=== PATIENT | female | born 1950 | race Caucasian/White ===

== ENCOUNTER 2019-12-25 05:34 | Outpatient (RCR) | payer MEDICARE, OTHER ==
[2019-12-18 12:10] VITALS: BP 127/80
[2019-12-18 12:37] LABS: BASOPHILS # (AUTO) 0.1 10^3/uL (0.0-0.1); BASOPHILS % (AUTO) 1 % (0-10); BILIRUBIN,URINE NEGATIVE (NEGATIVE); CLARITY,URINE CLEAR; COLOR,URINE DARK YELLOW; EOSINOPHILS # (AUTO) 0.2 10^3/uL (0.0-0.3); EOSINOPHILS % (AUTO) 4 % (0-10); GLUCOSE, URINE (UA) NEGATIVE (NEGATIVE); HEMATOCRIT 43 % (35-52); HEMOGLOBIN 15.4 g/dL (11.5-16.0); KETONES,URINE NEGATIVE (NEGATIVE); LEUKOCYTE ESTERASE ,URINE TRACE (NEGATIVE); LYMPHOCYTES # (AUTO) 1.7 10^3/uL (1.0-4.0); LYMPHOCYTES % (AUTO) 31 % (12-44); MEAN CORPUSCULAR HEMOGLOBIN 32 pg (25-34); MEAN CORPUSCULAR HGB CONC 36 g/dL (32-36); MEAN CORPUSCULAR VOLUME 89 fL (80-99); MONOCYTES # (AUTO) 0.7 10^3/uL (0.0-1.0); MONOCYTES % (AUTO) 13 % (0-12); NEUTROPHILS # (AUTO) 2.8 10^3/uL (1.8-7.8); NEUTROPHILS % (AUTO) 52 % (42-75); NITRITE,URINE NEGATIVE (NEGATIVE); PLATELET COUNT 257 10^3/uL (130-400); PROTEIN,URINE NEGATIVE (NEGATIVE); WHITE BLOOD COUNT 5.5 10^3/uL (4.3-11.0)
[2019-12-18 12:47] LABS: BACTERIA,URINE NEGATIVE /HPF; SQUAMOUS EPITHELIAL CELL,UR RARE /HPF; WBC,URINE RARE /HPF
[2019-12-18 12:48] LABS: PROTHROMBIN TIME PATIENT 13.3 SEC (12.2-14.7)
[2019-12-18 12:55] LABS: ALBUMIN 4.2 GM/DL (3.2-4.5); BILIRUBIN,TOTAL 0.8 MG/DL (0.1-1.0); CALCIUM 9.8 MG/DL (8.5-10.1); CREATININE SERUM 0.93 MG/DL (0.60-1.30); POTASSIUM 4.3 MMOL/L (3.6-5.0); TOTAL PROTEIN 7.3 GM/DL (6.4-8.2)
[2019-12-18 13:00] LABS: ERYTHROCYTE SEDIMENTATION RATE 14 MM/HR (0-30)
--- NOTE | 2019-12-18 14:54 | Diagnostic Imaging Report ---
Indication: Preoperative for a knee arthroplasty. Time of exam: 12:37 PM Comparison is made with prior chest from 07/12/2013. The heart size is normal. The pulmonary vascularity is unremarkable. The lungs are clear. No infiltrate, effusion or pneumothorax is detected. Impression: No acute cardiopulmonary process is detected. Dictated by: Dictated on workstation # [id number]
[~2019-12-25] VITALS: Ht 152 cm; Wt 82.6 kg
[~2019-12-25 05:34] MED LIST: AMLO10TA PO; AMLO10TA7 PO; ASPI-999 PO; CYCL10TA9 PO; FLT05NA16 NSEACH; FURO40TA4 PO; LORA10TA7 PO; LOSA100T57 PO; LOVA40TA2 PO; METO-333 PO; NAPR-689 PO; NAPR-915 PO; NF-TYLARTH PO; OMEG1CAP51 PO; OMEP20CA12 PO; OMEP20CA18 PO; OXYC-12 PO; TRAM50TA2 PO; TRAM50TA3 PO
== END 2019-12-25 14:42 | disposition home or self-care (01) ==
LOC: PREOP 05:34
PROVIDERS: ATTEND Orthopaedic Surgery
DX: Z01.810 Encounter for preprocedural cardiovascular examination (principal); Z01.811 Encounter for preprocedural respiratory examination; Z01.812 Encounter for preprocedural laboratory examination; Z11.2 Encounter for screening for other bacterial diseases; M17.11 Unilateral primary osteoarthritis, right knee; R53.83 Other fatigue; Z20.828 Contact with and (suspected) exposure to other viral communicable diseases
CPT/HCPCS: 36415; 71046; 80053; 81000; 85025; 85610; 85652; 86850; 86900; 86901; 87081; 87635; 93005

== ENCOUNTER 2019-12-27 09:30 | Inpatient (IN) | payer MEDICARE, OTHER ==
--- NOTE | 2019-12-18 13:40 | HISTORY AND PHYSICAL ---
DATE OF SERVICE: This will be for inpatient admission on 12/27/2019 for right total knee arthroplasty. The patient will require regular inpatient admission due to comorbidities, need for inpatient physical therapy and pain management issues as well as gait abnormalities. HISTORY OF PRESENT ILLNESS: The patient is a 69-year-old female with progressively worsening right knee pain. She previously underwent left total knee arthroplasty with good results. She reports progressive worsening right knee pain with loss of function. Radiographs reveal severe medial and patellofemoral arthrosis. Due to functional impairment and failure to improve with conservative measures, which has included injections, rest and activity modifications, the patient has elected to proceed with surgical intervention. REVIEW OF SYSTEMS: No chest pain, no shortness of breath, no dysuria. PAST MEDICAL HISTORY: Hypertension, hyperlipidemia, reflux. PAST SURGICAL HISTORY: Left total knee arthroplasty and tear duct surgery. FAMILY HISTORY: Significant for diabetes, ischemic heart disease. PRIMARY CARE PROVIDER: Dr. Kimberly Louis, [place], [place]. MEDICATIONS: Amlodipine, losartan, lovastatin, Naprosyn, tramadol, aspirin, omeprazole, furosemide, loratadine, metoprolol. ALLERGIES: No known drug allergies. SOCIAL HISTORY: The patient denies alcohol, tobacco use. PHYSICAL EXAMINATION: GENERAL: The patient is well-developed, well-nourished, in no acute distress. HEENT: Normocephalic, atraumatic. Pupils are equal, round and reactive to light. Oropharynx is clear. NECK: Supple, no lymphadenopathy. LUNGS: Clear to auscultation bilaterally. HEART: Regular rate and rhythm. ABDOMEN: Soft, nontender, nondistended. EXTREMITIES: The right knee demonstrates varus alignment. She ambulates with an antalgic gait. Range of motion is 0/3/125 with patellofemoral crepitus and pain medially with Rachelle. There is no varus valgus laxity. Negative anterior and posterior drawer. IMPRESSION: Right knee osteoarthritis, unresponsive to conservative measures. PLAN: Right total knee arthroplasty. The risks, benefits, options, ramifications and recovery were discussed at length with the patient. She understands and wishes to proceed. Job ID: [id number] DocumentID: [id number] Dictated Date: 12/18/2019 13:26:24 [employer] Founder Date: 12/18/2019 13:39:46 Dictated By: XIMENA BOYLE MD
[~2019-12-27] VITALS: Ht 152.4 cm; Wt 82.2 kg
[~2019-12-27 09:30] MED LIST changes: +AMLO-251 PO; -AMLO10TA7 PO
--- NOTE | 2020-01-15 11:31 | HISTORY AND PHYSICAL ---
DATE OF SERVICE: ADMISSION HISTORY AND PHYSICAL DATE OF ADMISSION: 01/24/2020. This will be for admission date on 01/24/2020, her date of service will be 01/24/2020. The patient will require regular inpatient admission on 01/24/2020 for right total knee arthroplasty due to associated comorbidities, need for inpatient physical therapy and pain management issues as well as gait abnormalities. HISTORY OF PRESENT ILLNESS: The patient is a 69-year-old female with progressively worsening right knee pain. She previously underwent a left total knee arthroplasty with good results. She reports progressive worsening right knee pain with loss of function. Radiographs revealed severe medial and patellofemoral arthrosis. Due to functional impairment and failure to improve with conservative measures, which has included injections, rest and activity modifications, the patient elected to proceed with surgical intervention. REVIEW OF SYSTEMS: No chest pain, no shortness of breath and no dysuria. PAST MEDICAL HISTORY: Hypertension, hyperlipidemia and reflux. PAST SURGICAL HISTORY: Left total knee arthroplasty and tear duct surgery. FAMILY HISTORY: Significant for diabetes and ischemic heart disease. PRIMARY CARE PROVIDER: Dr. Kimberly Louis in [facility]. MEDICATIONS: Amlodipine, losartan, lovastatin, Naprosyn, tramadol, aspirin, omeprazole, furosemide, loratadine and metoprolol. ALLERGIES: No known drug allergies. SOCIAL HISTORY: The patient denies alcohol and tobacco use. PHYSICAL EXAMINATION: GENERAL: The patient is well-developed, well-nourished, in no acute distress. HEENT: Normocephalic and atraumatic. Pupils are equal, round and reactive to light. Oropharynx is clear. NECK: Supple, no lymphadenopathy. LUNGS: Clear to auscultation bilaterally. HEART: Regular rate and rhythm. ABDOMEN: Soft, nontender and nondistended. EXTREMITIES: The right knee demonstrates varus alignment. She ambulates with an antalgic gait. Range of motion is 0/3/125 with patellofemoral crepitus and pain medially with Rachelle. There is no varus valgus laxity. Negative anterior and posterior drawer. IMPRESSION: Severe right knee osteoarthritis, unresponsive to conservative measures. PLAN: Right total knee arthroplasty. The risks, benefits, options, ramifications and recovery were discussed at length with the patient. She understands and wishes to proceed. Job ID: [id number] DocumentID: [id number] Dictated Date: 01/15/2020 11:21:26 Fence Erector Supervisor Date: 01/15/2020 11:30:16 Dictated By: XIMENA BOYLE MD
[2020-01-24] VITALS (12 sets, daily range): BP systolic 103–151; BP diastolic 61–96
[2020-01-24] MEDS ORDERED: fentaNYL INJECTION 100 MCG/2 ML AMP ONE ×2 (06:43→08:27)
[2020-01-24] MEDS ORDERED: LIDOCAINE PF 2% 5 ML (XYLOCAINE) VIAL ONE (06:43)
[2020-01-24] MEDS ORDERED: BUPIVACAINE 0.25% 30 ML (SENSORCAINE) VIAL ONE (06:43)
[2020-01-24] MEDS ORDERED: MIDAZOLAM 2 MG/2 ML (VERSED) VIAL ONE (06:43)
[2020-01-24] MEDS ORDERED: CEFUROXIME INJECTION 1,500 MG in WATER (STERILE) FOR INJECTION 15 ML IV ONE (06:45)
[2020-01-24] MEDS ORDERED: proPOfol 200 MG/20 ML (DIPRIVAN) VIAL IV ONE (06:54)
[2020-01-24] MEDS ORDERED: SEVOFLURANE (ULTANE) 15 ML INHAL SOLN ONE ×5 (06:55→09:16)
[2020-01-24] MEDS ORDERED: ONDANSETRON 4 MG/2 ML (SDV) Z0FRAN ONE (06:55)
[2020-01-24] MEDS ORDERED: diphenhydrAMINE 50 MG/ML INJ (BENADRYL) IVP PRN (07:15)
[2020-01-24] MEDS ORDERED: morphine PCA 100 MG/100 ML BAG IV PRN (07:15)
[2020-01-24] MEDS ORDERED: ACETAMINOPHEN 325 MG TABLET PO PRN (07:15)
[2020-01-24] MEDS ORDERED: ONDANSETRON 4 MG/2 ML (SDV) Z0FRAN IVP PRN ×2 (07:15→09:45)
[2020-01-24] MEDS: LACTATED RINGERS 1,000 ML IV PRN ×2 (07:26→09:05)
--- NOTE | 2020-01-24 07:34 | Progress Note-Pre Operative ---
Pre-Operative Progress Note H&P Reviewed The H&P was reviewed, patient examined and no changes noted. Date Seen by Provider: Jan 24, 2020 Time Seen by Provider: 07:11 Date H&P Reviewed: Jan 24, 2020 Time H&P Reviewed: 07:10 Pre-Operative Diagnosis: right knee primary osteoarthritis XIMENA BOYLE MD Jan 24, 2020 07:34
--- NOTE | 2020-01-24 07:35 | Progress Note-Post Operative ---
Post-Operative Progess Note Surgeon (s)/Scenic Artist (s) Surgeon XIMENA BOYLE MD Scenic Artist: Abdulkadir Sanderson Pre-Operative Diagnosis right knee primary osteoarthritis Post-Operative Diagnosis right knee primary osteoarthritis Procedure & Operative Findings Date of Procedure 01/24/20 Procedure Performed/Findings right total knee arthroplasty Anesthesia Type GETA Estimated Blood Loss Estimated blood loss (mL): minimal Specimens/Packing Specimens Removed none Packing: none XIMENA BOYLE MD Jan 24, 2020 07:35
--- NOTE | 2020-01-24 07:37 | D/C HH Face to Face Order ---
D/C Face to Face Orders Reconcile Patient Problems Problems Reviewed?: Yes Instructions for Patient [facility] You[facility], Patient Instructions/FollowUp: three weeks Physician to follow Patient: three weeks Discharge Diet for Home: Regular Diet Patient Data-Allergies,Ht & Wt Patient Allergies: Coded Allergies: No Known Drug Allergies (Unverified , 01/24/20) Height (Feet): 5 Height (Inches): 2.00 Weight (Pounds): 181 Weight (Ounces): 0.0 Home Health Need/Face to Face Date of Face to Face: Jan 24, 2020 Clinical Findings: Instability, Muscle weakness, Pain with ambulation, Unsteady gait I have seen Pt [id number]: Yes Discharged To: Home Diagnosis/Conditions: right total knee arthroplasty Patient is Homebound due to: Aminata fall risk due to instabilty, Muscle weakness, Pain w/ambulation Homebound Status Due to the above stated illness, injury or surgical procedure (medical condition or diagnosis) and associated clinical findings, the patient is homebound because of his/her inability to leave home except with aid of a supportive device and/or person AND leaving the home requires a considerable and taxing effort or is medically contraindicated. Pt req the following assistanc: Walker Home Health Nursing Orders Home Health Services Order: Physical Therapy-Evaluate & Treat DC right knee abdiaziz and apply steri strips 02/07/20 Therapy Orders Therapy Orders: Physical Therapy, PT to assess for OT Therapy Specific Orders: Eval assistive deivces, Teach strategies/cognitive deficits, Teach enviro modifications/safety, Gait training, Increase strength/endurance, Provider maintenance therapy, Restore ROM Certify Stmt I certify that this patient is under my care and that I, a nurse practitioner or a physician; a hair or beauty salon assistant working with me, had a face to face encounter that - meets the physician face to face encounter requirements with this patient as dated. XIMENA BOYLE MD Jan 24, 2020 07:37
[2020-01-24] MEDS ORDERED: INTRA-ARTICULAR IU ONE ×5 (07:45)
[2020-01-24] MEDS ORDERED: TRANEXAMIC ACID 100 MG/ML 10 ML INJECTION IV ONE (08:21)
[2020-01-24] MEDS: SENNA W/DOCUSATE (SENOKOT S) TABLET PO SCH ×2 (09:00→20:20)
[2020-01-24] MEDS ORDERED: MEPERIDINE (DEMEROL) INJ 50 MG/ML IVP ONE (09:45)
[2020-01-24] MEDS ORDERED: HYDROmorphone 2 MG/ML VIAL (DILAUDID) IV ONE (09:45)
[2020-01-24] MEDS ORDERED: morphine INJ 10 MG/ML 1ML (SYR OR VIAL) IVP ONE (09:45)
[2020-01-24] MEDS ORDERED: MEPERIDINE (DEMEROL) INJ 50 MG/ML ONE (09:48)
--- NOTE | 2020-01-24 10:24 | Progress Note ---
Standard Progress Note Progress Notes/Assess & Plan Date Seen by a Provider: Jan 24, 2020 Time Seen by a Provider: 10:10 Progress/Assessment & Plan post op check no complaints Radiographs--HW well positioned without fracture RLE-- 1 plus, symmetric DP pulse with brisk cap refill. Intact DF and PF of toes and ankle. Intact sensation to light touch throughout s/p RTKA mobilize as able XIMENA BOYLE MD Jan 24, 2020 10:23
--- NOTE | 2020-01-24 10:26 | Diagnostic Imaging Report ---
INDICATION: Postop right knee arthroplasty. TECHNIQUE: AP and lateral views of the right knee were obtained at 9:54 AM. FINDINGS: The right knee prosthesis appears in good alignment. There is no sign of fracture or device loosening. There is soft tissue gas, compatible with the recent surgery. There is no unexpected foreign body post surgery. IMPRESSION: Well aligned right knee prosthesis with no unexpected foreign body post surgery. Dictated by: Dictated on workstation # [id number]
--- NOTE | 2020-01-24 10:35 | NUR ---
MARTIN MARTE admitted to room 411-1, with an admitting diagnosis of OSTEOARTHRITIS OF RIGHT KNEE, on 01/24/20 from PACU via BED, accompanied by PACU MARTIN WHITMAN introduced to surroundings, call light, bed controls, phone, TV, temperature control, lights, meal times, smoking policy, visitor policy, side rail policy, bathrooms and showers. Patient Rights given to patient in the handbook. MARTIN MARTE verbalizes understanding that [facility] is not responsible for the loss or damage to any personal effects or valuables that are kept in the patients posession during their hospitalization. The following Patient Care Plans were discussed with the PATIENT: Discharge Planning, POST OP ACTIVITIES, RIGHT TOTAL KNEE REPLACEMENT and KNOWLEDGE DEFICIT.. MARTIN MARTE verbalizes understanding of Interdisciplinary Patient Education. Patient and/or family were informed about the Rapid Response Team and its purpose. PATIENT ON ROOM AIR. ESTER HOSE, SCD AND POLOAR DOMINICK ON RIGHT KNEE. DRESSING CLEAN, DRY AND INTACT. ICE WATER AND ICE CHIPS AVAILABLE. PATIENT DENIES ANY NEEDS AT THIS TIME. WILL CONTINUE TO MONITOR.
[2020-01-24] MEDS: NS IV 1000 ML 1,000 ML IV SCH ×2 (10:51→22:47)
--- NOTE | 2020-01-24 13:15 | NUR ---
PCT REPORTED PATIENT'S SPO2 LOW IN -AROUND 78%. 3L NC PUT ON SPO2 CAME UP TO 99% POSSIBLE SLEEP APNEA? PATIENT OPENED EYES TO GENTLE SHAKING AND LIGHT STERNAL RUB. CONTINUOUS 02 MONITOR AND END TIDAL CO2 ORDERED. WILL CONTINUE TO MONITOR. DR KEYES NOTIFIED.
--- NOTE | 2020-01-24 14:42 | Physical Therapy Evaluation ---
PT Evaluation-General Medical Diagnosis Admission Date Jan 24, 2020 at 06:17 Medical Diagnosis: R TKA Onset Date: Jan 24, 2020 Therapy Diagnosis Therapy Diagnosis: Impaired strength, mobility, and ROM Height/Weight Height (Feet): 5 Height (Inches): 2.00 Weight (Pounds): 181 Weight (Ounces): 0.0 Precautions Precautions/Isolations: Fall Prevention, Standard Precautions Weight Bear Status Right Lower Extremity: Right Weight Bearing/Tolerated Left Lower Extremity: Left Full Weight Bearing Referral Physician: Kin Reason for Referral: Evaluation/Treatment Medical History Pertinent Medical History: HTN Additional Medical History PAST MEDICAL HISTORY: Hypertension, hyperlipidemia and reflux. PAST SURGICAL HISTORY: Left total knee arthroplasty and tear duct surgery. Reviewed History: Yes Social History Home: Single Level Current Living Status: Spouse (daughter home for pt's recovery period) Entry Into Home: Ramp PT Steps Into Home: 2 Prior Prior Level of Function SCALE: Activities may be completed with or without assistive devices. 7-Dtaomfgibl-ipphydn completes the activity by him/herself with no assistance from a helper. 5-Set-up or Clean-up Assistance-helper sets up or cleans up; patient completes activity. [place] assists only prior to or following the activity. 4-Supervision or Touching Assistance-helper provides verbal cues and/or touching/steadying and/or contact guard assistance as patient completes activity. Assistance may be provided throughout the activity or intermittently. 3-Partial/Moderate Assistance-helper does LESS THAN HALF the effort. Melcroft lifts, holds or supports trunk or limbs, but provides less than half the effort. 2-Substantial/Maximal Assistance-helper does MORE THAN HALF the effort. Melcroft lifts or holds trunk or limbs and provides more than half the effort. 2-Unkvwoomi-gfgghp does ALL the effort. Patient does none of the effort to complete the activity. Or, the assistance of 2 or more helpers is required for the patient to complete the activity. If activity was not attempted, code reason: 7-Patient Refused. 9-Not Applicable-not attempted and the patient did not perform the activity before the current illness, exacerbation or injury. 10-Not Attempted due to Environmental Limitations-(lack of equipment, weather restraints, etc.). 88-Not Attempted due to Medical Conditions or Safety Concerns. Bed Mobility: 6 Transfers (B,C,W/C): 6 Gait: 6 Stairs: 6 Wheelchair Mobility: 9 Indoor Mobility (Ambulation): Independent Stairs: Independent Prior Devices Use: Other-see list below (Cane) PT Evaluation-Current Subjective Pt presents supine in bed. Pt agrees to PT. Pt reports 10/10 pain in right knee. Pt/Family Goals Return home Objective Patient Orientation: Person, Place, Time, Eyes Open, Situation Attachments: Oxygen, Polar Pack ROM/Strength ROM Lower Extremities right knee flexion 70 degrees, ext +5 degrees Strength Lower Extremities R hip flex: <3/5 L hip flex: 3/5 R knee extension 2+/5 L knee extension: 5/5 Sensory Vision: Wears Glasses Hearing: Functional Sensation Right Lower Extremit: Intact Sensation Left Lower Extremity: Intact Sensation Lower Extremities BLE sensation intact to light touch L2-S2 Transfers Roll Left to Right (QC): 4 Sit to Lying (QC): 3 Lying to Sitting/Side of Bed(Q: 3 Sit to Stand (QC): 3 Chair/Per-td-Wdtbw Xfer(QC): 3 Gait Does the Patient Walk?: Yes Mode of Locomotion: Walk Anticipated Mode of Locomotion: Walk Walk 10 feet (QC): 4 Distance: 12' Gait Assistive Device: FWW Comments/Gait Description Pt ambulates slowly and with antalgic gait due to right knee. Balance Sitting Static: Normal Sitting Dynamic: Good Standing Static: Good Standing Dynamic: Good Treatment Seated LAQs, ankle pumps, glut sets, hip abd/add B x20 Assessment/Needs Pt presents with limited strength and ROM that is affecting her mobility. Pt is placed in continues passive motion machine that is set to 60/-2 degrees. Patient in bed post tx with nurse call, phone, tray, all needs met, SCD's on, CPM donned, polar care on. Rehab Potential: Good PT Fdc Goals Fdc Goals PT Developmental Education Instructor Goals Time Frame: Jan 31, 2020 Roll Left & Right (QC): 6 Sit to Lying (QC): 6 Lying-Sitting on Side/Bed(QC): 6 Sit to Stand (QC): 4 Chair/Lcu-ap-Jkmwo Xfer(QC): 4 Toilet Transfer (QC): 4 Walk 10 feet (QC): 4 Walk 50ft with 2 Turns (QC): 4 Walk 150 ft (QC): 4 1 Step (curb) (QC): 3 4 Steps (QC): 3 Picking up an Object (QC): 4 PT Plan Problem List Problem List: Activity Tolerance, Functional Strength, Safety, Balance, Gait, Transfer, Bed Mobility, ROM Treatment/Plan Treatment Plan: Continue Plan of Care Treatment Plan: Bed Mobility, Education, Functional Activity Wong, Functional Strength, Gait, Safety, Therapeutic Exercise, Transfers Treatment Duration: Jan 31, 2020 Frequency: 11 times per week Estimated Hrs Per Day: .25 hour per day Patient and/or Family Agrees t: Yes Safety Risks/Education Patient Education: Gait Training, Transfer Techniques, Correct Positioning, Safety Issues Teaching Recipient: Patient Teaching Methods: Demonstration, Discussion Response to Teaching: Reinforcement Needed Discharge Recommendations Plan Pt will work on bed mobility, balance and gait training, and therapeutic exercises to improve ROM and strength. Therapy Discharge Recommendati: Home & Family Time/GCodes Time In: 1404 Time Out: 1432 Total Billed Treatment Time: 28 Total Billed Treatment 1 visit EVL 10' EX 18' ABBY MELENDEZ PT Jan 24, 2020 14:42
[2020-01-24] MEDS ORDERED: ACET-2267 PO (15:33)
--- NOTE | 2020-01-24 15:37 | NUR ---
SPOKE WITH THE PT AND WENT THRU THE EXT MED HISTORY TO COMPLETE THE MED REC NAPROXEN 500MG IS ON THE EXT MED HISTORY, HOWEVER PT HAS NOT TAKEN FOR THE PAST COUPLE MONTHS IN PREPARATION FOR SURGERY OTC MEDS: ASPIRIN 81 LORATADINE TYLENOL
[2020-01-24] MEDS: CEFUROXIME INJECTION 750 MG in WATER (STERILE) FOR INJECTION 10 ML IV SCH ×2 (16:06→23:55)
[2020-01-24] MEDS ORDERED: PANTOPRAZOLE 20 MG TABLET (PROTONIX) PO PRN (19:00)
--- NOTE | 2020-01-24 19:24 | OPERATIVE REPORT ---
DATE OF SERVICE: 01/24/2020 PREOPERATIVE DIAGNOSIS: Right knee primary osteoarthritis. POSTOPERATIVE DIAGNOSIS: Right knee primary osteoarthritis. PROCEDURE: Right total knee arthroplasty. SURGEON: Karri Boyle MD HAND OR MACHINE PASTER: Abdulkadir Sanderson, who assisted throughout the procedure and closed the incision. ANESTHESIA: General endotracheal by Luis Cuevas CRNA. TOURNIQUET TIME: Approximately 67 minutes at 300 mmHg. ESTIMATED BLOOD LOSS: Minimal. DRAINS: None. COMPLICATIONS: None. POSTOPERATIVE PLAN: Routine protocol. The patient was transferred to the recovery room awake and in stable condition. MATERIALS: Microport cemented size 4 femur, cemented size 4 tibia with 12 mm insert and cemented size 32 patellar button. STATEMENT OF MEDICAL NECESSITY: The patient is a 69-year-old female with longstanding progressive right knee pain. She had severe tricompartmental osteoarthritis and undergone extensive conservative treatment, but had progressive loss of function and because of this, elected to proceed with surgical intervention. DESCRIPTION OF PROCEDURE: After risks and benefits of procedure were discussed and questions were answered, an informed consent was signed and placed on chart. The operative site was confirmed in the preoperative holding area initialed by the surgeon. The patient was then transported to the operating room and after adequate levels of general endotracheal anesthetic were obtained, a timeout was called, confirming the operative site. The right lower extremity was prepped and draped in the usual sterile fashion with the leg elevated and the knee flexed. Tourniquet was inflated to 300 mmHg. A standard anterior approach was utilized. Hemostasis was obtained with cautery. Medial parapatellar arthrotomy was performed leaving 1 cm cuff on the patella for later reattachment. A portion of the fat pad was resected. Subperiosteal release was performed on the proximal medial tibia being careful to stay on the bony surface. ACL was resected. Intramedullary guide was passed into the femur and the distal cutting block was placed. Distal cut was made, the femur sized to a size 4. The 4 cutting block was placed parallel to the epicondylar axis and cuts were made from posterior to anterior. A subperiosteal release was then carefully performed with the posterior distal femur, being careful to stay on the bony surface. Intramedullary guide was passed into the tibia. The cutting block was placed. The drop bradley transected the intermalleolar axis and the cut was made. The four baseplate was positioned and again the drop bradley transected the intermalleolar axis and this was pinned into position. This was prepared with a drill and keel punched. The femoral trial was placed and trochlear cut was made. The patella was then prepared by resecting 10 mm off the undersurface using the freehand technique. The peg guide was placed and peg holes were drilled. A 12 mm insert was placed on the tibia, 32 button trial was placed. Knee was taken through range of motion. The patella tracked well. There was no anterior/posterior or medial/lateral laxity in flexion or extension. Trials were removed and soft tissues were irrigated with pulse lavage. Periarticular block was placed in the posterior capsule, medial and lateral retinaculum, extensor mechanism, subcutaneous tissues. Bone ends were irrigated and dried and the tibial baseplate was cemented into position. Excessive cement was removed. The superior surface was irrigated and dried and the polyethylene insert was placed. The distal femur was irrigated and dried and the femoral prosthesis was cemented into position. Excessive cement was removed. The knee was brought out into full extension until cement had cured. The undersurface of patella was irrigated and dried. The patellar button was cemented into position. Once the cement had cured, the knee was taken through range of motion. Full extension was easily obtained under 20 degrees of flexion with gravity was easily obtained. Patella tracked well. There was no anterior/posterior or medial/lateral laxity in flexion or extension. The joint was further irrigated with pulse lavage. Arthrotomy was closed with #2 Tevdek in fngfyr-ub-isxod interrupted fashion. Knee was flexed. No undue tension was noted at the repair site. Subcutaneous tissues were irrigated with pulse lavage using a total of 6 liters throughout the procedure. A 0 Vicryl was used to deep subcutaneous tissue, 2-0 Vicryl for the superficial subcutaneous tissue, abdiaziz were used on skin. Soft dressing was applied. The tourniquet was deflated. The patient was transferred to recovery room awake and in stable condition. Job ID: [id number] DocumentID: [id number] Dictated Date: 01/24/2020 09:44:21 Air Purifier Servicer Date: 01/24/2020 19:23:53 Dictated By: KARRI BOYLE MD
[2020-01-24] MEDS: SIMvastatin 20 MG (ZOCOR) TAB PO SCH (20:18)
[2020-01-25] VITALS: BP 104/66
[2020-01-25 04:00] VITALS: BP_SYST 117; BP_SYST 138; BP_DIAS 70; BP_DIAS 71
[2020-01-25 05:24] LABS: HEMOGLOBIN 11.3 g/dL (11.5-16.0)
[2020-01-25 05:26] LABS: POTASSIUM 4.5 MMOL/L (3.6-5.0)
[2020-01-25 05:27] LABS: CALCIUM 8.5 MG/DL (8.5-10.1)
[2020-01-25 05:32] LABS: CREATININE SERUM 1.03 MG/DL (0.60-1.30)
[2020-01-25] MEDS: MULTIVIT W/MINERALS TAB (THERAGRAN M) PO SCH (06:12)
--- NOTE | 2020-01-25 06:54 | Anesthesia-General Post-Op ---
General Patient Condition Mental Status/LOC: Same as Preop Cardiovascular: Satisfactory Nausea/Vomiting: Absent Respiratory: Satisfactory Pain: Controlled Complications: Absent Post Op Complications Complications None Follow Up Care/Instructions Patient Instructions None needed. Anesthesia/Patient Condition Patient Condition Patient is doing well, no complaints, stable vital signs, no apparent adverse anesthesia problems. No complications reported per nursing. IJEOMA ELLIS CRNA Jan 25, 2020 06:54
[2020-01-25 08:00] VITALS: BP 117/72
--- NOTE | 2020-01-25 08:00 | Progress Note ---
Standard Progress Note Progress Notes/Assess & Plan Date Seen by a Provider: Jan 25, 2020 Time Seen by a Provider: 07:58 Progress/Assessment & Plan post op check no complaints Radiographs--HW well positioned without fracture RLE-- 1 plus, symmetric DP pulse with brisk cap refill. Intact DF and PF of toes and ankle. Intact sensation to light touch throughout s/p RTKA mobilize as able Final Diagnosis no complaints Vital Signs Date Time Temp Pulse Resp B/P (MAP) Pulse Ox O2 Delivery O2 Flow Rate FiO2 01/25/20 07:40 97 Nasal Cannula 2.00 01/25/20 04:00 36.9 77 18 117/71 (86) 95 Nasal Cannula 2.00 01/25/20 02:02 96 Nasal Cannula 2.00 01/25/20 00:00 36.6 60 20 104/66 (79) 97 Nasal Cannula 2.00 01/24/20 22:02 93 Nasal Cannula 2.00 01/24/20 21:00 18 01/24/20 21:00 94 Room Air 01/24/20 20:04 37.0 66 18 116/73 (87) 97 Nasal Cannula 2.00 01/24/20 18:55 91 Nasal Cannula 2.00 01/24/20 16:48 37.0 56 14 103/65 (78) 95 Room Air 01/24/20 14:39 94 Nasal Cannula 2.00 01/24/20 12:00 36.3 72 20 110/70 (83) 93 Room Air 01/24/20 11:12 94 Room Air 01/24/20 10:55 16 01/24/20 10:48 Room Air 01/24/20 10:35 Room Air 01/24/20 10:35 36.2 14 132/71 (91) 96 Room Air 01/24/20 10:35 36.4 62 20 124/75 (91) 94 Room Air 01/24/20 10:30 14 125/61 (82) Room Air 01/24/20 10:25 Nasal Cannula 3 01/24/20 10:20 16 125/68 (87) 96 Nasal Cannula 3 01/24/20 10:10 14 131/85 (100) 98 OxyMask 3 01/24/20 10:10 OxyMask 3 01/24/20 10:00 20 130/75 (93) 100 OxyMask 4 01/24/20 09:55 OxyMask 4 01/24/20 09:50 20 140/82 (101) 98 OxyMask 4 01/24/20 09:41 OxyMask 8 01/24/20 09:41 36.8 22 142/82 (102) 98 OxyMask 8 I & O 01/25/20 07:00 Intake Total 2225 ml Balance 2225 ml Laboratory Tests Test 01/25/20 04:35 Range/Units Hemoglobin 11.3 L 11.5-16.0 g/dL Hematocrit 33 L 35-52 % Sodium Level 137 135-145 MMOL/L Potassium Level 4.5 3.6-5.0 MMOL/L Chloride Level 106 98-107 MMOL/L Carbon Dioxide Level 20 L 21-32 MMOL/L Anion Gap 11 5-14 MMOL/L Blood Urea Nitrogen 25 H 7-18 MG/DL Creatinine 1.03 0.60-1.30 MG/DL Estimat Glomerular Filtration Rate 53 BUN/Creatinine Ratio 24 Glucose Level 121 H 70-105 MG/DL Calcium Level 8.5 8.5-10.1 MG/DL RLE--dressing intact. NVI distally. No calf tenderness. Neg Chris's s/p RTKA doing well PT/OT today likely DC tomorrow XIMENA BOYLE MD Jan 25, 2020 08:00
[2020-01-25] MEDS: SENNA W/DOCUSATE (SENOKOT S) TABLET PO SCH ×2 (09:12→20:46)
[2020-01-25] MEDS: oxyCODONE/APAP 5/325MG (PERCOCET 5) TABLET PO PRN ×4 (09:13→20:45)
[2020-01-25] MEDS: ASPIRIN E.C. 81 MG (ECOTRIN) TAB PO SCH (09:13)
[2020-01-25] MEDS: ENOXAPARIN 30 MG/0.3 ML (LOVENOX) SYR SC SCH ×2 (09:14→20:45)
[2020-01-25] MEDS: meTOprolol TARTRATE 25 MG (LOPRESSOR) TABLET PO SCH (09:14)
[2020-01-25] MEDS: LOSARTAN 100 MG (COZAAR) TABLET PO SCH (09:14)
[2020-01-25] MEDS: amLODIPine 10 MG (NORVASC) TAB PO SCH (09:14)
--- NOTE | 2020-01-25 10:07 | Physical Therapy Daily Note ---
PT Daily Note-Current Subjective Patient reports she has been using the HEAT TREATER but hasn't taken a pain pill. RN notified and will issue. Pain Numeric Pain Scale: 8 Location: Right Location Body Site: Knee Pain Description: Acute Mental Status Patient Orientation: Normal For Age Attachments: Oxygen, IV Transfers SCALE: Activities may be completed with or without assistive devices. 5-Geltbswwrl-fkfhzve completes the activity by him/herself with no assistance from a helper. 5-Set-up or Clean-up Assistance-helper sets up or cleans up; patient completes activity. [place] assists only prior to or following the activity. 4-Supervision or Touching Assistance-helper provides verbal cues and/or touching/steadying and/or contact guard assistance as patient completes activity. Assistance may be provided throughout the activity or intermittently. 3-Partial/Moderate Assistance-helper does LESS THAN HALF the effort. [place] lifts, holds or supports trunk or limbs, but provides less than half the effort. 2-Substantial/Maximal Assistance-helper does MORE THAN HALF the effort. [place] lifts or holds trunk or limbs and provides more than half the effort. 5-Tcusnlcwj-jtfhvy does ALL the effort. Patient does none of the effort to complete the activity. Or, the assistance of 2 or more helpers is required for the patient to complete the activity. If activity was not attempted, code reason: 7-Patient Refused. 9-Not Applicable-not attempted and the patient did not perform the activity before the current illness, exacerbation or injury. 10-Not Attempted due to Environmental Limitations-(lack of equipment, weather restraints, etc.). 88-Not Attempted due to Medical Conditions or Safety Concerns. Roll Left & Right (QC): 5 Sit to Lying (QC): 5 Lying to Sitting/Side of Bed(Q: 5 Sit to Stand (QC): 5 Toilet Transfer (QC): 5 Weight Bearing Right Lower Extremity: Right Weight Bearing/Tolerated Left Lower Extremity: Left Full Weight Bearing Gait Training Does the Patient Walk?: Yes Distance: 200' Walk 10 feet (QC): 5 Walk 50 ft with 2 Turns(QC): 5 Walk 150 ft (QC): 5 Gait Assistive Device: FWW slow, step to gait sequence Wheelchair Training Does the Pt Use a Wheelchair?: No Exercises Supine Ex: Ankle pumps, Quad Set, Heel Slides, Straight leg raise Supine Reps: 10 Seated Therapy Exercises: Long arc quads Standing Reps: 15 Treatments CPM 0-[address] with polar pack Assessment Current Status: Excellent Progress Patient progressing with treatment plan and returned to bed with CPM in place. PT to increase activity as tolerated by patient. PT Neighborhood Planner Goals Group Home Goals PT Group Home Goals Time Frame: Jan 31, 2020 Roll Left & Right (QC): 6 Sit to Lying (QC): 6 Lying-Sitting on Side/Bed(QC): 6 Sit to Stand (QC): 4 Chair/Ynp-hv-Ueikq Xfer(QC): 4 Toilet Transfer (QC): 4 Walk 10 feet (QC): 4 Walk 50ft with 2 Turns (QC): 4 Walk 150 ft (QC): 4 1 Step (curb) (QC): 3 4 Steps (QC): 3 Picking up an Object (QC): 4 PT Plan Treatment/Plan Treatment Plan: Continue Plan of Care Treatment Plan: Bed Mobility, Education, Functional Activity Wong, Functional Strength, Gait, Safety, Therapeutic Exercise, Transfers Treatment Duration: Jan 31, 2020 Frequency: 11 times per week Estimated Hrs Per Day: .25 hour per day Patient and/or Family Agrees t: Yes Time/GCodes Time In: 825 Time Out: 850 Total Billed Treatment Time: 25 Total Billed Treatment 1 visit EX 12 min GT 13 min YUN JAY PT Jan 25, 2020 10:07
[2020-01-25] MEDS: NS IV 1000 ML 1,000 ML IV SCH ×3 (10:57→23:31)
[2020-01-25 12:00] VITALS: BP 116/72
--- NOTE | 2020-01-25 13:12 | NUR ---
IRF Evaluation Determination: Denied Findings: According to PT Progress Note, patient is ambulating (200ft, FWW), completing bed mobility and toilet transfers with setup; therefore, patient does not require intensive therapies. Thank you for this referral.
--- NOTE | 2020-01-25 13:49 | NUR ---
CM/SS visited with patient for social service consult. Plan: Patient will discharge home with home health. Home Health: The patient was provided with a patient preference form. She chose [facility]; however, they do not have a home health agency any longer. CM/SS faxed referral to [facility] in [place]. CM/SS faxed home health referrals and face to face. They have patient on for start of care . CM/SS got verbal permission from Abdulkadir Sanderson to have Physical therapy start on Wednesday. Walker: Patient does not need a walker due to already having one. Support: The patient has a and a Daughter staying at the house with her. CM/SS will continue to follow.
--- NOTE | 2020-01-25 14:16 | NUR ---
RD ASSESSMENT PMHx: HTN; HLD; GERD; s/p R TKA PT INTERACTION: Pt was awake and pleasant during nutrition assessment. Pt states current appetite is pretty good. Note avg PO intake 69% x1d, per chart review. Pt states following a regular diet at home, and has no issues with chewing/swallowing food. Pt states no recent issues with nausea, vomiting, constipation, or diarrhea, and that her last BM was 01/22. Note pt currently on bowel regimen of senna BID, per chart review. Pt states recent wt loss, but unsure of amount/timeframe. Pt states "it's a little weight loss." Note unable to determine recent wt hx, per chart review. ABNORMAL NUTRITION-RELATED LAB VALUES LOW: HIGH: BUN 25; glu 121 Est. kcal needs: 1744-3631 kcal | 15-18 kcal/kg Est. Pro needs: 66-82 g Pro | 0.8-1.0 g Pro/kg PES STATEMENT: Inadequate oral intake (NI-2.1) related to loss of appetite as evidenced by pt interview and avg PO intake 69% x1d. INTERVENTION: Continue with current diet order of Regular diet. Pt may benefit from nutrition supplementation if PO intake declines. Will continue to follow and reassess as pt needs, intake, and status change. Hakan Peace, MS RD LD
--- NOTE | 2020-01-25 15:01 | Consultation - Hospitalist ---
HPI History of Present Illness: HPI/Chief Complaint Marleny Carrasco is a 69-year-old female with past medical history of hypertension, hyperlipidemia, GERD, seasonal allergies, osteoarthritis, who presented for scheduled total knee arthroplasty. She underwent the procedure today and is doing well postoperatively. She is not having any pain at this time. She was able to get up and walk around the bed with physical therapy. She has no other complaints or concerns at this time. She denies any fevers or chills. She denies any shortness of breath or cough. She has been able to eat and drink with no issue. Source: patient Exam Limitations: no limitations Date Seen 01/24/20 Attending Physician Karri Ye MD PCP No,Local Physician Referring Physician Date of Admission Jan 24, 2020 at 06:17 Home Medications & Allergies Home Medications Reviewed patient Home Medication Reconciliation performed by pharmacy medication reconciliations salvage engineering technician and/or nursing. Patients Allergies have been reviewed. Allergies Allergies Coded Allergies No Known Drug Allergies (Pgmkgpbpdy60/11/20) Past Mjbrfjz-Nnldvp-Cqtusa Hx Past Med/Social Hx: Reviewed Nursing Past Med/Soc Hx Patient Social History Alcohol Use: Denies Use Recreational Drug Use: No Smoking Status: Never a Smoker Physical Abuse Screen: No Sexual Abuse: No Recent Foreign Travel: No Contact w/other who traveled: No Recent Hopitalizations: No Immunizations Up To Date Tetanus Booster (TDap): More than 5yrs Seasonal Allergies Seasonal Allergies: Yes (MILD) Past Medical History Sexually Transmitted Disease: No HIV/AIDS: No Genitourinary: Kidney Stones Gastrointestinal: Gastroesophageal Reflux Musculoskeletal: Arthritis Loss of Vision: Denies Hearing Impairment: Denies History of Blood Disorders: No Adverse Reaction to Blood Inman: No (N/A) Family History Family history: Arthritis 19 MOTHER Family history: Cardiovascular disease 19 FATHER Family history: Diabetes mellitus 19 FATHER Family history: Hypertension 19 FATHER Stroke 19 MOTHER No Family History of: Abdominal aortic aneurysm Alcoholism Cancer Congenital heart disease Congestive heart failure Dementia Family history: Alzheimer's disease Family history: Asthma Family history: Breast disease Family history: Gastrointestinal disease Family history: Thyroid disorder Hereditary disease History of - anemia History of - respiratory disease Kidney disease Myocardial infarction Parkinson's disease Prostate cancer Psychotic disorder Seizure disorder Review of Systems Constitutional: no symptoms reported EENTM: no symptoms reported Respiratory: no symptoms reported Cardiovascular: no symptoms reported Gastrointestinal: no symptoms reported Genitourinary: no symptoms reported Musculoskeletal: no symptoms reported Skin: no symptoms reported Psychiatric/Neurological: No Symptoms Reported Physical Exam Physical Exam Vital Signs Vital Signs - First Documented 01/24/20 07:00 Temp 37.5 Pulse 94 Resp 18 B/P (MAP) 151/96 (114) Pulse Ox 97 O2 Delivery Room Air Capillary Refill : Less Than 3 SecondsLess Than 3 Seconds Height, Weight, BMI Height: 5'2.00" Weight: 181lbs. 0.0oz. 82.616612cl; 35.39 BMI Method: General Appearance: No Apparent Distress, Obese HEENT: PERRL/EOMI, Pharynx Normal Neck: Normal Inspection, Supple Respiratory: Lungs Clear, Normal Breath Sounds, No Respiratory Distress Cardiovascular: Regular Rate, Rhythm, No Edema, No Murmur Gastrointestinal: Normal Bowel Sounds, Non Tender, Soft Extremity: No Pedal Edema, Other (right knee immobilized) Neurologic/Psychiatric: Alert, Oriented x3, No Motor/Sensory Deficits, Normal Mood/Affect Skin: Normal Color, Warm/Dry Results Results/Procedures Labs Laboratory Tests 01/25/20 04:35 Patient resulted labs reviewed. Imaging: Reviewed Imaging Report Assessment/Plan Assessment and Plan Assess & Plan/Chief Complaint Osteoarthritis of the right knee s/p total knee arthroplasty Dr. Ye primary PT/OT Pain regimen Bowel regimen Incentive spirometry HTN HLD GERD Continue home meds Possible KANA Oxygen as needed Overnight trend ox Recommend outpatient sleep study DVT Prophylaxis: Lovenox Diagnosis/Problems Diagnosis/Problems (1) Osteoarthritis of right knee Status: Acute (2) S/P total knee arthroplasty Status: Acute (3) HTN (hypertension) Status: Chronic (4) HLD (hyperlipidemia) Status: Chronic (5) GERD (gastroesophageal reflux disease) Status: Chronic Clinical Quality Measures DVT/VTE Risk/Contraindication: Risk Factor Score Per Nursin RFS Level Per Nursing on Admit: 4+=Very High LEIA KEYES MD Jan 25, 2020 15:01
--- NOTE | 2020-01-25 15:04 | Progress Note - Hospitalist ---
Subjective HPI/CC On Admission Date Seen by Provider: Jan 25, 2020 Time Seen by Provider: 08:55 Marleny Carrasco is a 69-year-old female with past medical history of hypertension, hyperlipidemia, GERD, seasonal allergies, osteoarthritis, who presented for scheduled total knee arthroplasty. She underwent the procedure today and is doing well postoperatively. She is not having any pain at this time. She was able to get up and walk around the bed with physical therapy. She has no other complaints or concerns at this time. She denies any fevers or chills. She denies any shortness of breath or cough. She has been able to eat and drink with no issue. Subjective/Events-last exam She is having some pain. She walked quite a bit with physical therapy. She has not been using her incentive spirometer, but will start using it. She denies fevers. She denies trouble breathing and cough. She has had a bowel movement. Objective Exam Vital Signs Vital Signs Date Time Temp Pulse Resp B/P (MAP) Pulse Ox O2 Delivery O2 Flow Rate FiO2 01/25/20 12:00 36.8 80 18 116/72 (87) 98 Nasal Cannula 2.00 Capillary Refill : Less Than 3 SecondsLess Than 3 Seconds General Appearance: No Apparent Distress, WD/WN Respiratory: Lungs Clear, Normal Breath Sounds, No Respiratory Distress Cardiovascular: Regular Rate, Rhythm, No Edema, No Murmur Gastrointestinal: Normal Bowel Sounds, Non Tender, Soft Extremity: No Pedal Edema, Other (knee immobilizer in place) Neurologic/Psychiatric: Alert, Oriented x3, No Motor/Sensory Deficits, Normal Mood/Affect Skin: Normal Color, Warm/Dry Results/Procedures Lab Laboratory Tests 01/25/20 04:35 Patient resulted labs reviewed. Imaging: Reviewed Imaging Report Assessment/Plan Assessment and Plan Assess & Plan/Chief Complaint Osteoarthritis of the right knee s/p total knee arthroplasty Dr. Ye primary PT/OT Continue pain regimen Continue bowel regimen Incentive spirometry HTN HLD GERD Continue home meds Possible KANA Oxygen as needed Overnight trend ox Recommend outpatient sleep study DVT Prophylaxis: Lovenox Diagnosis/Problems Diagnosis/Problems (1) Osteoarthritis of right knee Status: Acute (2) S/P total knee arthroplasty Status: Acute (3) HTN (hypertension) Status: Chronic (4) HLD (hyperlipidemia) Status: Chronic (5) GERD (gastroesophageal reflux disease) Status: Chronic Clinical Quality Measures DVT/VTE Risk/Contraindication: Risk Factor Score Per Nursin RFS Level Per Nursing on Admit: 4+=Very High LEIA KEYES MD Jan 25, 2020 15:04
--- NOTE | 2020-01-25 15:05 | Physical Therapy Daily Note ---
PT Daily Note-Current Subjective Patient is very agreeable to participate with therapy. Pain Numeric Pain Scale: 7 Location: Right Location Body Site: Knee Pain Description: Acute Mental Status Patient Orientation: Normal For Age Attachments: Oxygen, IV Transfers SCALE: Activities may be completed with or without assistive devices. 3-Zqhnhbxjva-atrxsfh completes the activity by him/herself with no assistance from a helper. 5-Set-up or Clean-up Assistance-helper sets up or cleans up; patient completes activity. [place] assists only prior to or following the activity. 4-Supervision or Touching Assistance-helper provides verbal cues and/or touching/steadying and/or contact guard assistance as patient completes activity. Assistance may be provided throughout the activity or intermittently. 3-Partial/Moderate Assistance-helper does LESS THAN HALF the effort. [place] lifts, holds or supports trunk or limbs, but provides less than half the effort. 2-Substantial/Maximal Assistance-helper does MORE THAN HALF the effort. [place] lifts or holds trunk or limbs and provides more than half the effort. 6-Byobgijlr-ghgchp does ALL the effort. Patient does none of the effort to complete the activity. Or, the assistance of 2 or more helpers is required for the patient to complete the activity. If activity was not attempted, code reason: 7-Patient Refused. 9-Not Applicable-not attempted and the patient did not perform the activity before the current illness, exacerbation or injury. 10-Not Attempted due to Environmental Limitations-(lack of equipment, weather restraints, etc.). 88-Not Attempted due to Medical Conditions or Safety Concerns. Sit to Lying (QC): 6 Lying to Sitting/Side of Bed(Q: 6 Sit to Stand (QC): 5 Weight Bearing Right Lower Extremity: Right Weight Bearing/Tolerated Left Lower Extremity: Left Full Weight Bearing Gait Training Does the Patient Walk?: Yes Distance: 225' Walk 10 feet (QC): 6 Walk 50 ft with 2 Turns(QC): 6 Walk 150 ft (QC): 6 Gait Assistive Device: FWW slow, step to gait sequence Exercises Supine Ex: Ankle pumps, Quad Set, Heel Slides, Straight leg raise Supine Reps: 15 Seated Therapy Exercises: Long arc quads Seated Reps: 15 Assessment Patient declined CPM at this time. RN notified of patient's pain level and request for pain medication. Plan dismissal in a.m. PT Software Test Engineer Goals Software Test Engineer Goals PT Software Test Engineer Goals Time Frame: Jan 31, 2020 Roll Left & Right (QC): 6 Sit to Lying (QC): 6 Lying-Sitting on Side/Bed(QC): 6 Sit to Stand (QC): 4 Chair/Zaj-fz-Suxon Xfer(QC): 4 Toilet Transfer (QC): 4 Walk 10 feet (QC): 4 Walk 50ft with 2 Turns (QC): 4 Walk 150 ft (QC): 4 1 Step (curb) (QC): 3 4 Steps (QC): 3 Picking up an Object (QC): 4 PT Plan Treatment/Plan Treatment Plan: Continue Plan of Care Treatment Plan: Bed Mobility, Education, Functional Activity Wong, Functional Strength, Gait, Safety, Therapeutic Exercise, Transfers Treatment Duration: Jan 31, 2020 Frequency: 11 times per week Estimated Hrs Per Day: .25 hour per day Patient and/or Family Agrees t: Yes Time/GCodes Time In: 1300 Time Out: 1326 Total Billed Treatment Time: 26 Total Billed Treatment 1 visit EX 13 min GT 13 min YUN JAY PT Jan 25, 2020 15:05
--- NOTE | 2020-01-25 15:33 | Occupational Therapy Eval ---
OT Evaluation-General/PLF Medical Diagnosis Admission Date Jan 24, 2020 at 06:17 Medical Diagnosis: R TKA Onset Date: Jan 24, 2020 Therapy Diagnosis Therapy Diagnosis: Weakness, Decreased ADL skills Height/Weight Height (Feet): 5 Height (Inches): 2.00 Weight (Pounds): 181 Weight (Ounces): 0.0 Precautions Precautions/Isolations: Standard Precautions Referral Physician: Cassi Referral Reason: Activity Tolerance, Self Care, Evaluation/Treatment, Strength ening/ROM Medical History Pertinent Medical History: DM, HTN Additional Medical History Heart disease Current History Pt. came to hospital for elective RTKR Reviewed History: Yes Social History Home: Single Level Current Living Status: Spouse (daughter home for pt's recovery period) Entry Into Home: Ramp ADL-Prior Level of Function SCALE: Activities may be completed with or without assistive devices. 9-Jabytdrwso-nniyybv completes the activity by him/herself with no assistance from a helper. 5-Set-up or Clean-up Assistance-helper sets up or cleans up; patient completes activity. [place] assists only prior to or following the activity. 4-Supervision or Touching Assistance-helper provides verbal cues and/or touching/steadying and/or contact guard assistance as patient completes activity. Assistance may be provided throughout the activity or intermittently. 3-Partial/Moderate Assistance-helper does LESS THAN HALF the effort. [place] lifts, holds or supports trunk or limbs, but provides less than half the effort. 2-Substantial/Maximal Assistance-helper does MORE THAN HALF the effort. [place] lifts or holds trunk or limbs and provides more than half the effort. 0-Tjdbiylmb-ejunns does ALL the effort. Patient does none of the effort to complete the activity. Or, the assistance of 2 or more helpers is required for the patient to complete the activity. If activity was not attempted, code reason: 7-Patient Refused. 9-Not Applicable-not attempted and the patient did not perform the activity before the current illness, exacerbation or injury. 10-Not Attempted due to Environmental Limitations-(lack of equipment, weather restraints, etc.). 88-Not Attempted due to Medical Conditions or Safety Concerns. ADL PLOF Comments Pt. verbalizes that she is typically independent with daily tasks. She does not typically use a walker, but she does have one. Self Care: Independent Functional Cognition: Independent DME/Equipment: Bath Chair, Shower DME/Equipment Comments Pt. has walker Drive Self: Yes OT Current Status Subjective No pain reported. Appearance Pt. in bed. Alert and oriented. Agrees to work with OT. Mental Status/Objective Patient Orientation: Person, Place, Time, Situation Attachments: IV, Oxygen Current Glasses/Contacts: Yes Upper Extremity ROM WFL Upper Extremity Strength WFL ADL-Treatment Eating (QC): 6 Shower/Bathe Self (QC): 4 (SBA seated on toilet to complete sponge bath. ) Upper Body Dressing (QC): 5 (Set up to don shirt.) Lower Body Dressing (QC): 3 (Pt. able to don underwear and pants over right LE while seated, but required min assist to don over left foot. In stance, she was able to don over hips with CGA.) Toileting Hygiene (QC): 4 (Pt. able to cleanse self after toileting with SBA.) Other Treatments Pt. agrees to treatment. Transferred supine-sit with min assist. Stood at bedside with CGA, with walker and ambulated to bathroom. Pt. transferred to toilet with CGA. After toileting, she completed sponge bath and dressing task. Nursing came in to unhook IV so that pt. could don shirt. Pt. did not doff/don slipper socks this date, but states that she is aware of sock aides. Will practice this tomorrow. Pt. stood from toilet with min assist, and states that she has a toilet riser at home. She ambulated with CGA and walker to bed. Transferred to bed with SBA. All needs met. Education OT Patient Education: Correct positioning, Modified ADL techniques, Progress toward Goal/Update tx plan, Purpose of tx/functional activities, Reviewed precautions, Rehab process, Transfer techniques Teaching Recipient: Patient Teaching Methods: Demonstration, Discussion Response to Teaching: Verbalize Understanding, Return Demonstration OT Peat Shredder Tender Goals Peat Shredder Tender Goals Time Frame: Feb 01, 2020 Eating (QC): 6 Oral Hygiene (QC): 6 Toileting Hygiene (QC): 6 Upper Body Dressing (QC): 5 Lower Body Dressing (QC): 4 On/Off Footwear (QC): 4 Additional Goals: 1-Demonstrate ADL Tasks, 2-Verbalize Understanding, 3- ImproveStrength/Wong 1=Demonstrate adherence to instructed precautions during ADL tasks. 2=Patient will verbalize/demonstrate understanding of assistive devices/ariel fications for ADL. 3=Patient will improve strength/tolerance for activity to enable patient to perform ADL's. OT Education/Plan Problem List/Assessment Assessment: Decreased Activ Tolerance, Impaired I ADL's, Impaired Self-Care Skills Discharge Recommendations Plan/Recommendations: Continue POC Therapy Discharge Recommendati: Post Acute OT Equpiment Recommendations-D/C: Hip Kit Treatment Plan/Plan of Care Treatment,Training & Education: Yes Patient would benefit from OT for education, treatment and training to promote independence in ADL's, mobility, safety and/or upper extremity function for ADL's. Plan of Care: ADL Retraining, Functional Mobility Treatment Duration: Feb 01, 2020 Frequency: 5 times per week Estimated Hrs Per Day: .5 hour per day Agreement: Yes Rehab Potential: Good Time/GCodes Start Time: 11:15 Stop Time: 11:45 Total Time Billed (hr/min): 30 Billed Treatment Time 1, EVL x 15minutes, ADL x 15minutes CECILIO OSORIO OT Jan 25, 2020 15:33
[2020-01-25 15:56] VITALS: BP 121/75
[2020-01-25 19:33] VITALS: BP 114/54
[2020-01-25] MEDS: SIMvastatin 20 MG (ZOCOR) TAB PO SCH (20:45)
[2020-01-26 00:59] VITALS: BP 112/71
[2020-01-26] MEDS: oxyCODONE/APAP 5/325MG (PERCOCET 5) TABLET PO PRN ×3 (03:34→08:59)
[2020-01-26 03:35] VITALS: BP 126/80
--- NOTE | 2020-01-26 05:11 | DISCHARGE SUMMARY ---
DATE OF SERVICE: DIAGNOSES: 1. Right knee primary osteoarthritis. 2. Hypertension. 3. Hyperlipidemia. 4. Reflux. HISTORY: The patient is a 69-year-old female who was admitted the day of total knee arthroplasty, which she underwent without complications. Postoperatively, she did well. At time of discharge, her wound was clean and dry. She was tolerating diet well and tolerating pain with oral pain medications. CONDITION AT DISCHARGE: Good. DISCHARGE DIET: Regular. FOLLOWUP: Followup is in three weeks. DISCHARGE MEDICATIONS: Home medications, Percocet as needed for pain and one aspirin per day for 30 days. ACTIVITIES: Weightbearing as tolerated with a walker as needed. Home physical therapy has been arranged. Job ID: [id number] DocumentID: [id number] Dictated Date: 01/25/2020 18:45:07 House Manager Date: 01/26/2020 05:10:49 Dictated By: XIMENA BOYLE MD
[2020-01-26 05:59] LABS: HEMOGLOBIN 10.8 g/dL (11.5-16.0)
[2020-01-26] MEDS: MULTIVIT W/MINERALS TAB (THERAGRAN M) PO SCH (06:33)
[2020-01-26] MEDS ORDERED: morphine INJ 4 MG/ML 1 ML (VIAL/SYRINGE) IVP PRN (07:00)
--- NOTE | 2020-01-26 07:00 | Progress Note ---
Standard Progress Note Progress Notes/Assess & Plan Date Seen by a Provider: Jan 26, 2020 Time Seen by a Provider: 06:59 Progress/Assessment & Plan post op check no complaints Radiographs--HW well positioned without fracture RLE-- 1 plus, symmetric DP pulse with brisk cap refill. Intact DF and PF of toes and ankle. Intact sensation to light touch throughout s/p RTKA mobilize as able Final Diagnosis no complaints Vital Signs Date Time Temp Pulse Resp B/P (MAP) Pulse Ox O2 Delivery O2 Flow Rate FiO2 01/26/20 03:35 37.2 87 20 126/80 (95) 93 Nasal Cannula 2.00 01/26/20 01:40 91 Nasal Cannula 1.00 01/26/20 00:59 37.2 80 16 112/71 (85) 96 Nasal Cannula 2.00 01/25/20 22:40 18 01/25/20 22:02 91 Nasal Cannula 1.00 01/25/20 20:40 Room Air 01/25/20 19:33 37.4 62 16 114/54 (74) 92 01/25/20 18:50 94 Nasal Cannula 1.00 01/25/20 15:56 37.2 77 18 121/75 (90) 98 Nasal Cannula 2.00 01/25/20 14:24 96 Nasal Cannula 2.00 01/25/20 12:00 36.8 80 18 116/72 (87) 98 Nasal Cannula 2.00 01/25/20 10:38 96 Nasal Cannula 2.00 01/25/20 08:00 36.9 90 20 117/72 (87) 99 Nasal Cannula 2.00 01/25/20 08:00 94 Room Air 01/25/20 07:40 97 Nasal Cannula 2.00 01/25/20 07:00 18 I & O 01/26/20 07:00 Intake Total 1430 ml Output Total 500 ml Balance 930 ml Laboratory Tests Test 01/26/20 05:41 Range/Units Hemoglobin 10.8 L 11.5-16.0 g/dL Hematocrit 31 L 35-52 % RLE--incision clean and dry. No calf tenderness. Neg Chris's. s/p RTKA doing well DC after PT today XIMENA BOYLE MD Jan 26, 2020 07:00
--- NOTE | 2020-01-26 07:46 | NUR ---
85mL FENTANYL ([employer] REPAIR TECHNICIAN) WASTED WITH AUGIE ROBERTSON.
[2020-01-26 08:00] VITALS: BP 130/69
[2020-01-26] MEDS: SENNA W/DOCUSATE (SENOKOT S) TABLET PO SCH (08:54)
[2020-01-26] MEDS: ASPIRIN E.C. 81 MG (ECOTRIN) TAB PO SCH (08:54)
[2020-01-26] MEDS: meTOprolol TARTRATE 25 MG (LOPRESSOR) TABLET PO SCH (08:54)
[2020-01-26] MEDS: ENOXAPARIN 30 MG/0.3 ML (LOVENOX) SYR SC SCH (08:54)
[2020-01-26] MEDS: amLODIPine 10 MG (NORVASC) TAB PO SCH (08:54)
[2020-01-26] MEDS: LOSARTAN 100 MG (COZAAR) TABLET PO SCH (08:54)
--- NOTE | 2020-01-26 10:34 | Physical Therapy Daily Note ---
PT Daily Note-Current Subjective Pt presents sitting up in bed with cold pack on R knee upon arrival to room, agreeable to therapy treatment at this time. Pt reports that she is going home this date. Pain Numeric Pain Scale: 6 Location: Right Location Body Site: Knee Appearance Following session, pt returned to sitting up in bed with cold pack placed on R k nee. Call light and tray within reach, all needs met at this time. Mental Status Patient Orientation: Person, Place, Time, Situation Transfers SCALE: Activities may be completed with or without assistive devices. 8-Xtmzjoaskk-scsmcwb completes the activity by him/herself with no assistance from a helper. 5-Set-up or Clean-up Assistance-helper sets up or cleans up; patient completes activity. [place] assists only prior to or following the activity. 4-Supervision or Touching Assistance-helper provides verbal cues and/or touching/steadying and/or contact guard assistance as patient completes activity. Assistance may be provided throughout the activity or intermittently. 3-Partial/Moderate Assistance-helper does LESS THAN HALF the effort. [place] lifts, holds or supports trunk or limbs, but provides less than half the effort. 2-Substantial/Maximal Assistance-helper does MORE THAN HALF the effort. [place] lifts or holds trunk or limbs and provides more than half the effort. 3-Hmswvloqt-qqxivq does ALL the effort. Patient does none of the effort to complete the activity. Or, the assistance of 2 or more helpers is required for the patient to complete the activity. If activity was not attempted, code reason: 7-Patient Refused. 9-Not Applicable-not attempted and the patient did not perform the activity before the current illness, exacerbation or injury. 10-Not Attempted due to Environmental Limitations-(lack of equipment, weather restraints, etc.). 88-Not Attempted due to Medical Conditions or Safety Concerns. Sit to Stand (QC): 6 Weight Bearing Right Lower Extremity: Right Weight Bearing/Tolerated Left Lower Extremity: Left Full Weight Bearing Gait Training Distance: 200' Walk 10 feet (QC): 6 Walk 50 ft with 2 Turns(QC): 6 Walk 150 ft (QC): 6 Gait Assistive Device: FWW Pt with slow, steady gait pattern. Improved gait this date, demonstrating more of a swing through gait pattern. Exercises Supine Ex: Ankle pumps, Quad Set, Heel Slides Seated Therapy Exercises: Long arc quads Assessment Current Status: Good Progress Pt progressing very well with therapy treatment, pt safe to return home with assistance at this time. Pt would benefit from skilled outpatient physical therapy upon dc from hospital PT Fdc Goals Malt Specifications Control Assistant Goals PT Fdc Goals Time Frame: Jan 31, 2020 Roll Left & Right (QC): 6 Sit to Lying (QC): 6 Lying-Sitting on Side/Bed(QC): 6 Sit to Stand (QC): 4 Chair/Rsn-qh-Uiwlu Xfer(QC): 4 Toilet Transfer (QC): 4 Walk 10 feet (QC): 4 Walk 50ft with 2 Turns (QC): 4 Walk 150 ft (QC): 4 1 Step (curb) (QC): 3 4 Steps (QC): 3 Picking up an Object (QC): 4 PT Plan Problem List Problem List: Activity Tolerance, Functional Strength, Safety, Balance, Gait, Transfer, Bed Mobility, ROM Treatment/Plan Treatment Plan: Continue Plan of Care Treatment Plan: Bed Mobility, Education, Functional Activity Wong, Functional Strength, Gait, Safety, Therapeutic Exercise, Transfers Treatment Duration: Jan 31, 2020 Frequency: 11 times per week Estimated Hrs Per Day: .25 hour per day Patient and/or Family Agrees t: Yes Time/GCodes Time In: 822 Time Out: 0845 Total Billed Treatment 1 visit Ex (13') GT (10') VANE HAMILTON PT Jan 26, 2020 10:34
[2020-01-26 11:55] VITALS: BP 130/69
--- NOTE | 2020-01-26 11:55 | NUR ---
MARTIN MARTE demonstrates understanding of discharge instructions and accurately returns instructions upon questioning. Copy of Post-Discharge Instructions and Medication Discharge Instructions given to PT. MARTIN MARTE is able to manage continuing needs after discharge. Patients belongings returned to PT. Skin dry and intact; no breakdown noted. Patient discharged from 411-1 on at 1155. MARTIN MARTE left floor via WC, accompanied by STAFF.
--- NOTE | 2020-01-26 13:18 | NUR ---
CM/SS finalized discharge. Plan: Patient discharged with [facility]. Start of care in Wednesday the . No further needs.
--- NOTE | 2020-01-26 13:42 | Progress Note - Hospitalist ---
Subjective HPI/CC On Admission Date Seen by Provider: Jan 26, 2020 Time Seen by Provider: 10:10 Marleny Carrasco is a 69-year-old female with past medical history of hypertension, hyperlipidemia, GERD, seasonal allergies, osteoarthritis, who presented for scheduled total knee arthroplasty. She underwent the procedure today and is doing well postoperatively. She is not having any pain at this time. She was able to get up and walk around the bed with physical therapy. She has no other complaints or concerns at this time. She denies any fevers or chills. She denies any shortness of breath or cough. She has been able to eat and drink with no issue. Subjective/Events-last exam She reports feeling tired. She worked with physical therapy today. She has been eating and drinking without issue. She has been having bowel movements. She denies any shortness of breath or cough. She denies any fevers. She has no other complaints or concerns. Objective Exam Vital Signs Vital Signs Date Time Temp Pulse Resp B/P (MAP) Pulse Ox O2 Delivery O2 Flow Rate FiO2 01/26/20 11:55 35.9 99 20 130/69 9 Room Air 01/26/20 08:00 2.00 Capillary Refill : Less Than 3 SecondsLess Than 3 Seconds General Appearance: No Apparent Distress, Obese Respiratory: Lungs Clear, Normal Breath Sounds, No Respiratory Distress Cardiovascular: Regular Rate, Rhythm, No Edema, No Murmur Gastrointestinal: Normal Bowel Sounds, Non Tender, Soft Extremity: No Pedal Edema, Other (right knee immobilizer in place) Neurologic/Psychiatric: Alert, Oriented x3, No Motor/Sensory Deficits, Normal Mood/Affect Skin: Normal Color, Warm/Dry Results/Procedures Lab Laboratory Tests 01/26/20 05:41 Patient resulted labs reviewed. Imaging: Reviewed Imaging Report Assessment/Plan Assessment and Plan Assess & Plan/Chief Complaint Osteoarthritis of the right knee s/p total knee arthroplasty Dr. Ye primary Planning for discharge today with home health HTN HLD GERD Continue home meds Possible KANA Recommend outpatient sleep study DVT Prophylaxis: Lovenox Diagnosis/Problems Diagnosis/Problems (1) Osteoarthritis of right knee Status: Acute (2) S/P total knee arthroplasty Status: Acute (3) HTN (hypertension) Status: Chronic (4) HLD (hyperlipidemia) Status: Chronic (5) GERD (gastroesophageal reflux disease) Status: Chronic Clinical Quality Measures DVT/VTE Risk/Contraindication: Risk Factor Score Per Nursin RFS Level Per Nursing on Admit: 4+=Very High LEIA KEYES MD Jan 26, 2020 13:42
== END 2020-01-26 11:55 | disposition home health service (06) | DRG 470 ==
LOC: 4TH 01-24 06:17
PROVIDERS: ADMIT Orthopaedic Surgery; ATTEND Orthopaedic Surgery
PROC: 0SRC0J9 Replacement of Right Knee Joint with Synthetic Substitute, Cemented, Open Approach (ICD-10-PCS; principal; 2020-01-24 07:55)
DX: M17.11 Unilateral primary osteoarthritis, right knee (principal); I10 Essential (primary) hypertension; E78.5 Hyperlipidemia, unspecified; K21.9 Gastro-esophageal reflux disease without esophagitis; M06.9 Rheumatoid arthritis, unspecified; Z96.652 Presence of left artificial knee joint; G47.33 Obstructive sleep apnea (adult) (pediatric)
CPT/HCPCS: 36415; 73560; 80048; 85014; 85018; 86850; 86900; 86901; 93005; 94664; 94760

== ENCOUNTER 2020-01-22 05:49 | Outpatient (RCR) | payer MEDICARE, OTHER ==
[2020-01-15 13:45] LABS: BASOPHILS # (AUTO) 0.1 10^3/uL (0.0-0.1); BASOPHILS % (AUTO) 1 % (0-10); EOSINOPHILS # (AUTO) 0.1 10^3/uL (0.0-0.3); EOSINOPHILS % (AUTO) 1 % (0-10); HEMATOCRIT 43 % (35-52); LYMPHOCYTES # (AUTO) 1.7 10^3/uL (1.0-4.0); LYMPHOCYTES % (AUTO) 29 % (12-44); MEAN CORPUSCULAR HEMOGLOBIN 32 pg (25-34); MEAN CORPUSCULAR HGB CONC 35 g/dL (32-36); MEAN CORPUSCULAR VOLUME 90 fL (80-99); MEAN PLATELET VOLUME 8.9 fL (9.0-12.2); MONOCYTES # (AUTO) 0.6 10^3/uL (0.0-1.0); MONOCYTES % (AUTO) 10 % (0-12); NEUTROPHILS # (AUTO) 3.5 10^3/uL (1.8-7.8); NEUTROPHILS % (AUTO) 59 % (42-75); PLATELET COUNT 233 10^3/uL (130-400); WHITE BLOOD COUNT 5.9 10^3/uL (4.3-11.0)
[2020-01-15 13:46] LABS: BILIRUBIN,URINE NEGATIVE (NEGATIVE); CLARITY,URINE CLEAR; COLOR,URINE YELLOW; GLUCOSE, URINE (UA) NEGATIVE (NEGATIVE); KETONES,URINE NEGATIVE (NEGATIVE); LEUKOCYTE ESTERASE ,URINE 1+ (NEGATIVE); NITRITE,URINE NEGATIVE (NEGATIVE); PROTEIN,URINE NEGATIVE (NEGATIVE)
[2020-01-15 13:54] LABS: BACTERIA,URINE NEGATIVE /HPF; SQUAMOUS EPITHELIAL CELL,UR 0-2 /HPF; WBC,URINE 0-2 /HPF
[2020-01-15 13:58] LABS: PROTHROMBIN TIME PATIENT 13.5 SEC (12.2-14.7)
[2020-01-15 13:59] VITALS: BP 134/87
[2020-01-15 14:06] LABS: ALBUMIN 4.5 GM/DL (3.2-4.5); BILIRUBIN,TOTAL 1.2 MG/DL (0.1-1.0); CALCIUM 9.9 MG/DL (8.5-10.1); CREATININE SERUM 0.97 MG/DL (0.60-1.30); POTASSIUM 3.8 MMOL/L (3.6-5.0); TOTAL PROTEIN 7.9 GM/DL (6.4-8.2)
[2020-01-15 14:07] LABS: ERYTHROCYTE SEDIMENTATION RATE 29 MM/HR (0-30)
[~2020-01-22] VITALS: Ht 152.4 cm; Wt 82.2 kg
== END 2020-01-22 09:42 | disposition home or self-care (01) ==
LOC: PREOP 05:49
PROVIDERS: ATTEND Orthopaedic Surgery
DX: Z01.812 Encounter for preprocedural laboratory examination (principal); M17.11 Unilateral primary osteoarthritis, right knee; Z20.828 Contact with and (suspected) exposure to other viral communicable diseases
CPT/HCPCS: 36415; 80053; 81000; 85025; 85610; 85652; 86850; 86900; 86901; 87081; 87635

== ENCOUNTER → 2020-03-28 | Outpatient (CLI) | payer MEDICARE, OTHER ==
[~2020-03-28] MED LIST changes: +ACET-2267 PO
== END ==
LOC: LAB FS 10:00
PROVIDERS: ATTEND Nurse Practitioner Family
DX: Z01.812 Encounter for preprocedural laboratory examination (principal); Z20.822 Contact with and (suspected) exposure to COVID-19
CPT/HCPCS: 87635

== ENCOUNTER → 2020-12-16 | Outpatient (CLI) | payer MEDICARE, OTHER | LOC: LABNPT 05:36 | PROVIDERS: ATTEND Nurse Practitioner Family | DX: Z20.822 Contact with and (suspected) exposure to COVID-19 (principal) | CPT/HCPCS: 87635 ==

== ENCOUNTER 2020-12-18 20:04 | Outpatient (CLI) | payer MEDICARE, OTHER | END 2020-12-19 06:54 | disposition home or self-care (01) | LOC: SLEEP 20:04 | PROVIDERS: ATTEND Nurse Practitioner Family | DX: G47.33 Obstructive sleep apnea (adult) (pediatric) (principal) | CPT/HCPCS: 95811 ==